=== PATIENT | female | born 1965 | race African-American/Black ===

== ENCOUNTER 2016-11-06 20:08 | Emergency (ER) | payer MEDICAID ==
[~2016-11-06] VITALS: Ht 172.7 cm; Wt 60.0 kg
[2016-11-06] MEDS ORDERED: SODIUM CHLORIDE 0.9% 1,000 ML IV ONE (20:29)
[2016-11-06] MEDS ORDERED: KETOROLAC 30MG/ML VIAL IV STA (20:29)
[2016-11-06] MEDS ORDERED: ONDANSETRON HCL 4MG/2ML VIAL IV STA ×2 (20:29→22:48)
[2016-11-06 21:47] LABS: INR 1.1; PROTHROMBIN TIME 11.3 sec (9.4-11.6)
[2016-11-06 21:50] LABS: BASOPHILS % 0.6 % (0.0-2.0); EOSINOPHILS % 0.4 % (0.0-5.0); HEMATOCRIT. 26.5 % (36.0-48.0); HEMOGLOBIN. 8.5 g/dL (12.0-16.0); LYMPHOCYTES % 20.5 % (20.0-50.0); MEAN CORPUSCULAR HEMOGLOBIN 27.2 pg (28.0-32.0); MEAN CORPUSCULAR VOLUME 84.8 fL (81.0-99.0); MONOCYTES % 9.7 % (2.0-8.0); NEUTROPHILS % 68.8 % (40.0-76.0); PLATELET 242 x1000/uL (130-400); RED BLOOD CELL COUNT 3.12 mill/uL (4.2-5.4); RED CELL DISTRIBUTION WIDTH 16.2 % (11.6-14.6)
[2016-11-06 21:55] LABS: CARBON DIOXIDE 32 mEq/L (21-32); CHLORIDE 94 mEq/L (98-107)
[2016-11-06] MEDS ORDERED: MORPHINE SULFATE 4 MG/ML CPJ (NOT FOR IM USE) IV STA (22:48)
[2016-11-06] MEDS ORDERED: HYDRALAZINE 20MG/ML VIAL IV ONE (23:00)
[2016-11-07 02:57] VITALS: BP 147/80
== END 2016-11-07 03:26 | disposition home or self-care (01) ==
LOC: ER 20:24
DX: R10.11 Right upper quadrant pain (principal); I12.0 Hypertensive chronic kidney disease with stage 5 chronic kidney disease or end stage renal disease; D63.1 Anemia in chronic kidney disease; E11.22 Type 2 diabetes mellitus with diabetic chronic kidney disease; N18.6 End stage renal disease; Z90.49 Acquired absence of other specified parts of digestive tract; Z99.2 Dependence on renal dialysis; Z87.19 Personal history of other diseases of the digestive system
CPT/HCPCS: 36415; 71010; 76705; 80053; 81025; 83690; 85025; 85610; 96361; 96374; 96375; 96376; 99285; J0360; J1885; J2270; J2405; J7030; Z7610

== ENCOUNTER 2016-11-13 22:24 | Inpatient (IN) | payer MEDICAID ==
[~2016-11-13] VITALS: Ht 167.6 cm; Wt 95.3 kg
[2016-11-13] MEDS ORDERED: ONDANSETRON HCL 4MG/2ML VIAL IV STA (23:15)
[2016-11-13] MEDS ORDERED: MORPHINE SULFATE 4 MG/ML CPJ (NOT FOR IM USE) IV STA (23:15)
[2016-11-13] MEDS ORDERED: FAMOTIDINE 20MG/2ML VIAL IV STA (23:15)
[2016-11-14 01:38] LABS: BASOPHILS % 1.8 % (0.0-2.0); EOSINOPHILS % 0.3 % (0.0-5.0); LYMPHOCYTES % 19.4 % (20.0-50.0); MEAN CORPUSCULAR HEMOGLOBIN 26.8 pg (28.0-32.0); MEAN CORPUSCULAR VOLUME 84.1 fL (81.0-99.0); MONOCYTES % 7.2 % (2.0-8.0); NEUTROPHILS % 71.3 % (40.0-76.0); PLATELET 203 x1000/uL (130-400); RED BLOOD CELL COUNT 2.97 mill/uL (4.2-5.4); RED CELL DISTRIBUTION WIDTH 16.4 % (11.6-14.6)
[2016-11-14 01:42] LABS: CHLORIDE 95 mEq/L (98-107)
[2016-11-14 01:51] LABS: CARBON DIOXIDE 33 mEq/L (21-32)
[2016-11-14 01:52] LABS: INR 1.2
[2016-11-14] MEDS ORDERED: LIDOCAINE HCL 1% 20ML VIAL (Pyxis) INJ ONE (08:28)
[2016-11-14] MEDS ORDERED: SODIUM BICARBONATE 4% (2.4MEQ) 5ML VIAL IV ONE (08:28)
[2016-11-14 09:45] VITALS: BP 194/91
[2016-11-14] MEDS: MORPHINE SULFATE 2 MG/ML CPJ (NOT FOR IM USE) IV PRN ×2 (11:06→21:04)
[2016-11-14 11:21] VITALS: BP 194/91
[2016-11-14 12:00] VITALS: BP 137/94
[2016-11-14] MEDS: SODIUM CHLORIDE 0.9% 1,000 ML IV SCH (12:06)
[2016-11-14] MEDS: ONDANSETRON HCL 4MG/2ML VIAL IV PRN ×2 (12:10→21:03)
[2016-11-14 16:00] VITALS: BP 134/85
[2016-11-14] MEDS ORDERED: DEXTROSE 50% WATER 50ML SYRINGE IV PRN (20:00)
[2016-11-14] MEDS ORDERED: POTASSIUM CHLORIDE 20MEQ TABLET SR PO NR (20:00)
[2016-11-14] MEDS ORDERED: ENOXAPARIN 40MG/0.4ML SYR SUBCUT SCH (21:00)
[2016-11-14] MEDS: CLONIDINE 0.1MG TABLET PO PRN (21:00)
[2016-11-14] MEDS: INSULIN LISPRO 100 UNITS/ML SUBCUT SCH (21:24)
[2016-11-14] MEDS: BLOOD SUGAR DIAGNOSTIC STRIP TEST SCH (21:25)
[2016-11-15] VITALS (13 sets, daily range): BP systolic 133–154; BP diastolic 74–88
[2016-11-15] MEDS: BLOOD SUGAR DIAGNOSTIC STRIP TEST SCH ×4 (06:24→20:46)
[2016-11-15] MEDS: ONDANSETRON HCL 4MG/2ML VIAL IV PRN ×2 (06:24→20:32)
[2016-11-15] MEDS: SODIUM CHLORIDE 0.9% 1,000 ML IV SCH ×2 (06:24→20:33)
[2016-11-15] MEDS: INSULIN LISPRO 100 UNITS/ML SUBCUT SCH ×4 (07:50→20:45)
[2016-11-15] MEDS ORDERED: FENTANYL CITRATE/PF 50MCG/ML 2ML VIAL ONE (09:12)
[2016-11-15] MEDS ORDERED: FENTANYL CITRATE/PF 50MCG/ML 2ML VIAL IV ONE (10:00)
[2016-11-15] MEDS: FAMOTIDINE 20MG/2ML VIAL IV SCH (11:35)
[2016-11-15] MEDS ORDERED: PIPERACILLIN/TAZ 3.375G PREMIX 50 ML IV SCH (12:00)
[2016-11-15] MEDS: HYDROMORPHONE HCL/PF 2MG/ML CPJ IV PRN ×3 (12:37→23:39)
[2016-11-15 13:27] LABS: BASOPHILS % 0.4 % (0.0-2.0); EOSINOPHILS % 0.5 % (0.0-5.0); HEMATOCRIT. 24.8 % (36.0-48.0); HEMOGLOBIN. 7.9 g/dL (12.0-16.0); LYMPHOCYTES % 12.7 % (20.0-50.0); MEAN CORPUSCULAR HEMOGLOBIN 27.1 pg (28.0-32.0); MEAN CORPUSCULAR VOLUME 85.1 fL (81.0-99.0); MEAN PLATELET VOLUME 8.9 fl (7.4-10.4); MONOCYTES % 6.1 % (2.0-8.0); NEUTROPHILS % 80.3 % (40.0-76.0); PLATELET 177 x1000/uL (130-400); RED BLOOD CELL COUNT 2.92 mill/uL (4.2-5.4); RED CELL DISTRIBUTION WIDTH 16.3 % (11.6-14.6)
[2016-11-15 13:33] LABS: INR 1.1; PROTHROMBIN TIME 11.8 sec (9.4-11.6)
[2016-11-15 13:55] LABS: CARBON DIOXIDE 33 mEq/L (21-32); CHLORIDE 97 mEq/L (98-107)
[2016-11-15] MEDS: PIPERACILLIN/TAZ 2.25G PREMIX 50 ML IV SCH ×2 (14:00→22:57)
[2016-11-15 16:30] LABS: TOTAL IRON BINDING CAPACITY 96 ug/dL (250-450)
[2016-11-15 16:52] LABS: FOLIC ACID (FOLATE) SERUM 3.6 ng/mL (>5.38)
[2016-11-15] MEDS: MORPHINE SULFATE 2 MG/ML CPJ (NOT FOR IM USE) IV PRN (17:14)
[2016-11-15] MEDS: FOLIC ACID 1MG TABLET PO SCH (20:33)
[2016-11-16] VITALS: BP 158/76
[2016-11-16 04:00] VITALS: BP 171/80
[2016-11-16] MEDS: PIPERACILLIN/TAZ 2.25G PREMIX 50 ML IV SCH ×3 (06:10→23:13)
[2016-11-16] MEDS: BLOOD SUGAR DIAGNOSTIC STRIP TEST SCH ×4 (06:21→20:28)
[2016-11-16] MEDS: HYDROMORPHONE HCL/PF 2MG/ML CPJ IV PRN ×4 (07:04→20:29)
[2016-11-16] MEDS: INSULIN LISPRO 100 UNITS/ML SUBCUT SCH ×4 (07:50→20:31)
[2016-11-16 08:00] VITALS: BP 132/70
[2016-11-16] MEDS: FOLIC ACID 1MG TABLET PO SCH (09:00)
[2016-11-16] MEDS: FAMOTIDINE 20MG/2ML VIAL IV SCH (09:00)
[2016-11-16] MEDS ORDERED: MORPHINE SULFATE 2 MG/ML CPJ (NOT FOR IM USE) IV PRN (10:15)
[2016-11-16 12:00] VITALS: BP 95/53
[2016-11-16] MEDS: SODIUM CHLORIDE 0.9% 1,000 ML IV SCH (14:28)
[2016-11-16 16:00] VITALS: BP 94/64
[2016-11-16] MEDS ORDERED: VANCOMYCIN 1500MG in DEXTROSE 5% WATER 250ML IV SCH (16:00)
[2016-11-16 20:00] VITALS: BP 123/64
[2016-11-16] MEDS: EPOETIN ALFA 10000UNITS/ML VIAL SUBCUT SCH (20:28)
[2016-11-17] VITALS: BP 147/70
[2016-11-17] MEDS: MORPHINE SULFATE 2 MG/ML CPJ (NOT FOR IM USE) IV PRN (00:15)
[2016-11-17 04:00] VITALS: BP 129/77
[2016-11-17] MEDS: HYDROMORPHONE HCL/PF 2MG/ML CPJ IV PRN ×4 (04:26→22:05)
[2016-11-17] MEDS: BLOOD SUGAR DIAGNOSTIC STRIP TEST SCH ×4 (06:22→21:54)
[2016-11-17] MEDS: SODIUM CHLORIDE 0.9% 1,000 ML IV SCH ×2 (06:22→21:58)
[2016-11-17] MEDS: PIPERACILLIN/TAZ 2.25G PREMIX 50 ML IV SCH ×3 (06:22→21:55)
[2016-11-17 06:26] LABS: BASOPHILS % 0.5 % (0.0-2.0); EOSINOPHILS % 2.4 % (0.0-5.0); LYMPHOCYTES % 21.3 % (20.0-50.0); MEAN CORPUSCULAR HEMOGLOBIN 27.1 pg (28.0-32.0); MEAN CORPUSCULAR VOLUME 84.9 fL (81.0-99.0); MEAN PLATELET VOLUME 9.3 fl (7.4-10.4); MONOCYTES % 9.1 % (2.0-8.0); NEUTROPHILS % 66.7 % (40.0-76.0); PLATELET 150 x1000/uL (130-400); RED BLOOD CELL COUNT 2.95 mill/uL (4.2-5.4); RED CELL DISTRIBUTION WIDTH 16.5 % (11.6-14.6)
[2016-11-17] MEDS: INSULIN LISPRO 100 UNITS/ML SUBCUT SCH ×4 (07:33→21:00)
[2016-11-17 08:00] VITALS: BP 146/75
[2016-11-17] MEDS: FAMOTIDINE 20MG/2ML VIAL IV SCH (08:18)
[2016-11-17] MEDS: FOLIC ACID 1MG TABLET PO SCH (08:18)
[2016-11-17 12:00] VITALS: BP 137/72
[2016-11-17 16:00] VITALS: BP 148/78
[2016-11-17 20:00] VITALS: BP 147/67
[2016-11-18] VITALS: BP 161/75
[2016-11-18] MEDS: HYDROMORPHONE HCL/PF 2MG/ML CPJ IV PRN ×5 (02:05→21:48)
[2016-11-18 04:00] VITALS: BP 185/97
[2016-11-18] MEDS: PIPERACILLIN/TAZ 2.25G PREMIX 50 ML IV SCH ×3 (06:10→21:59)
[2016-11-18] MEDS: BLOOD SUGAR DIAGNOSTIC STRIP TEST SCH ×4 (06:15→21:00)
[2016-11-18 06:26] LABS: BASOPHILS % 0.6 % (0.0-2.0); EOSINOPHILS % 2.2 % (0.0-5.0); HEMATOCRIT. 22.2 % (36.0-48.0); HEMOGLOBIN. 7.1 g/dL (12.0-16.0); LYMPHOCYTES % 17.5 % (20.0-50.0); MEAN CORPUSCULAR HEMOGLOBIN 26.9 pg (28.0-32.0); MEAN CORPUSCULAR VOLUME 84.3 fL (81.0-99.0); MEAN PLATELET VOLUME 9.4 fl (7.4-10.4); MONOCYTES % 8.4 % (2.0-8.0); NEUTROPHILS % 71.3 % (40.0-76.0); PLATELET 142 x1000/uL (130-400); RED BLOOD CELL COUNT 2.63 mill/uL (4.2-5.4); RED CELL DISTRIBUTION WIDTH 16.4 % (11.6-14.6)
[2016-11-18] MEDS: CLONIDINE 0.1MG TABLET PO PRN (06:33)
[2016-11-18] MEDS: INSULIN LISPRO 100 UNITS/ML SUBCUT SCH ×4 (07:50→21:00)
[2016-11-18 08:00] VITALS: BP 111/60
[2016-11-18] MEDS: FAMOTIDINE 20MG/2ML VIAL IV SCH (08:38)
[2016-11-18] MEDS: FOLIC ACID 1MG TABLET PO SCH (08:38)
[2016-11-18 12:00] VITALS: BP 113/80
[2016-11-18 16:00] VITALS: BP 120/66
[2016-11-18] MEDS ORDERED: LACTULOSE 20G/30ML UDC PO NR (16:00)
[2016-11-18] MEDS: SENNOSIDES/DOCUSATE SOD 8.6/50MG TABLET PO SCH (16:00)
[2016-11-18] MEDS ORDERED: VANCOMYCIN 750 MG PREMIX 150 ML IV SCH (17:00)
[2016-11-18] MEDS: LINEZOLID 600 MG PREMIX 300 ML IV SCH (17:31)
[2016-11-18 20:00] VITALS: BP 131/86
[2016-11-18] MEDS: EPOETIN ALFA 10000UNITS/ML VIAL SUBCUT SCH (21:00)
[2016-11-19 04:00] VITALS: BP 153/71
[2016-11-19] MEDS: LINEZOLID 600 MG PREMIX 300 ML IV SCH ×2 (05:13→17:38)
[2016-11-19] MEDS: PIPERACILLIN/TAZ 2.25G PREMIX 50 ML IV SCH ×3 (05:46→21:08)
[2016-11-19] MEDS: HYDROMORPHONE HCL/PF 2MG/ML CPJ IV PRN ×5 (05:52→23:28)
[2016-11-19] MEDS: BLOOD SUGAR DIAGNOSTIC STRIP TEST SCH ×4 (06:42→20:21)
[2016-11-19] MEDS: INSULIN LISPRO 100 UNITS/ML SUBCUT SCH ×4 (07:50→20:29)
[2016-11-19 08:00] VITALS: BP 159/71
[2016-11-19] MEDS: SENNOSIDES/DOCUSATE SOD 8.6/50MG TABLET PO SCH (08:46)
[2016-11-19] MEDS: FAMOTIDINE 20MG/2ML VIAL IV SCH (08:46)
[2016-11-19] MEDS: FOLIC ACID 1MG TABLET PO SCH (08:46)
[2016-11-19 12:00] VITALS: BP 133/70
[2016-11-19] MEDS: ONDANSETRON HCL 4MG/2ML VIAL IV PRN (14:59)
[2016-11-19 15:13] LABS: BASOPHILS % 0.8 % (0.0-2.0); EOSINOPHILS % 3.4 % (0.0-5.0); HEMATOCRIT. 23.4 % (36.0-48.0); HEMOGLOBIN. 7.4 g/dL (12.0-16.0); LYMPHOCYTES % 24.6 % (20.0-50.0); MEAN CORPUSCULAR HEMOGLOBIN 26.6 pg (28.0-32.0); MEAN CORPUSCULAR VOLUME 84.6 fL (81.0-99.0); MEAN PLATELET VOLUME 9.1 fl (7.4-10.4); MONOCYTES % 7.4 % (2.0-8.0); NEUTROPHILS % 63.8 % (40.0-76.0); PLATELET 182 x1000/uL (130-400); RED BLOOD CELL COUNT 2.76 mill/uL (4.2-5.4); RED CELL DISTRIBUTION WIDTH 16.4 % (11.6-14.6)
[2016-11-19 16:00] VITALS: BP 139/69
[2016-11-19 20:00] VITALS: BP 144/81
[2016-11-20] VITALS: BP 163/76
[2016-11-20 04:00] VITALS: BP 141/85
[2016-11-20] MEDS: LINEZOLID 600 MG PREMIX 300 ML IV SCH ×2 (04:11→17:43)
[2016-11-20] MEDS: ONDANSETRON HCL 4MG/2ML VIAL IV PRN ×2 (04:11→16:00)
[2016-11-20] MEDS: HYDROMORPHONE HCL/PF 2MG/ML CPJ IV PRN ×2 (04:12→08:28)
[2016-11-20] MEDS: PIPERACILLIN/TAZ 2.25G PREMIX 50 ML IV SCH ×2 (05:16→14:34)
[2016-11-20] MEDS: BLOOD SUGAR DIAGNOSTIC STRIP TEST SCH ×3 (07:10→17:45)
[2016-11-20 08:00] VITALS: BP 176/102
[2016-11-20] MEDS: FOLIC ACID 1MG TABLET PO SCH (08:27)
[2016-11-20] MEDS: FAMOTIDINE 20MG/2ML VIAL IV SCH (08:28)
[2016-11-20] MEDS: INSULIN LISPRO 100 UNITS/ML SUBCUT SCH ×3 (08:42→17:45)
[2016-11-20] MEDS: SENNOSIDES/DOCUSATE SOD 8.6/50MG TABLET PO SCH (08:44)
[2016-11-20 10:31] LABS: BASOPHILS % 0.7 % (0.0-2.0); EOSINOPHILS % 3.6 % (0.0-5.0); HEMATOCRIT. 25.6 % (36.0-48.0); MEAN CORPUSCULAR HEMOGLOBIN 26.3 pg (28.0-32.0); MEAN CORPUSCULAR VOLUME 84.5 fL (81.0-99.0); MONOCYTES % 6.5 % (2.0-8.0); NEUTROPHILS % 62.2 % (40.0-76.0); PLATELET 227 x1000/uL (130-400); RED BLOOD CELL COUNT 3.03 mill/uL (4.2-5.4)
[2016-11-20 12:00] VITALS: BP 136/75
[2016-11-20 16:00] VITALS: BP 167/100
[2016-11-20] MEDS ORDERED: HYDROCODONE/ACETAMINOPHEN 10/325MG TABLET PO PRN (18:45)
== END 2016-11-20 20:39 | disposition home or self-care (01) | DRG 720 ==
LOC: ER 22:38 → 6EST 11-14 04:55 → EDBEDREQ 11-14 05:10 → EDBEDREQSVC 11-14 05:10 → ENRESERV 11-14 05:34
PROVIDERS: ADMIT Internal Medicine; ATTEND Internal Medicine
PROC: 02H633Z Insertion of Infusion Device into Right Atrium, Percutaneous Approach (ICD-10-PCS; 2016-11-14)
PROC: B548ZZA Ultrasonography of Superior Vena Cava, Guidance (ICD-10-PCS; 2016-11-14)
PROC: B5181ZA Fluoroscopy of Superior Vena Cava using Low Osmolar Contrast, Guidance (ICD-10-PCS; 2016-11-14)
PROC: CF141ZZ Planar Nuclear Medicine Imaging of Gallbladder using Technetium 99m (Tc-99m) (ICD-10-PCS; principal; 2016-11-15)
PROC: 0F943ZX Drainage of Gallbladder, Percutaneous Approach, Diagnostic (ICD-10-PCS; 2016-11-15)
DX: A41.9 Sepsis, unspecified organism (principal); E43 Unspecified severe protein-calorie malnutrition; N18.6 End stage renal disease; K81.0 Acute cholecystitis; I13.11 Hypertensive heart and chronic kidney disease without heart failure, with stage 5 chronic kidney disease, or end stage renal disease; I31.3 Pericardial effusion (noninflammatory); E11.22 Type 2 diabetes mellitus with diabetic chronic kidney disease; N28.1 Cyst of kidney, acquired; D64.9 Anemia, unspecified; E11.65 Type 2 diabetes mellitus with hyperglycemia; I51.7 Cardiomegaly; K57.30 Diverticulosis of large intestine without perforation or abscess without bleeding; K86.89 Other specified diseases of pancreas; D17.79 Benign lipomatous neoplasm of other sites; K59.00 Constipation, unspecified; E66.9 Obesity, unspecified; E88.09 Other disorders of plasma-protein metabolism, not elsewhere classified; Z99.2 Dependence on renal dialysis; Z68.33 Body mass index [BMI] 33.0-33.9, adult; Z90.49 Acquired absence of other specified parts of digestive tract
CPT/HCPCS: 36415; 36569; 74176; 76937; 77001; 77012; 78227; 80048; 80053; 82607; 82728; 82746; 82962; 83540; 83550; 83605; 83690; 85025; 85610; 85730; 87070; 87075; 87186; 87205; 96374; 96375; 99285; A9537; C1725; C1729; J0885; J1170; J1815; J2020; J2270; J2405; J2543; J3010; J3370; J3490; J7030; J7050; J7060; L8514

== ENCOUNTER 2016-12-07 20:14 | Inpatient (IN) | payer MEDICAID ==
[~2016-12-07] VITALS: Ht 170.2 cm; Wt 83.9 kg
[2016-12-08] MEDS ORDERED: ONDANSETRON 4MG ODT PO ONE (00:15)
[2016-12-08] MEDS ORDERED: ONDANSETRON HCL 4MG/2ML VIAL IV ONE (01:00)
[2016-12-08] MEDS ORDERED: MORPHINE SULFATE 4 MG/ML CPJ (NOT FOR IM USE) IV ONE (01:00)
[2016-12-08] MEDS ORDERED: SODIUM CHLORIDE 0.9% 500 ML IV ONE (01:00)
[2016-12-08 01:08] LABS: BASOPHILS % 2.5 % (0.0-2.0); EOSINOPHILS % 1.5 % (0.0-5.0); HEMATOCRIT. 27.9 % (36.0-48.0); HEMOGLOBIN. 8.9 g/dL (12.0-16.0); LYMPHOCYTES % 28.1 % (20.0-50.0); MEAN CORPUSCULAR HEMOGLOBIN 25.8 pg (28.0-32.0); MEAN CORPUSCULAR VOLUME 80.4 fL (81.0-99.0); MEAN PLATELET VOLUME 8.4 fl (7.4-10.4); MONOCYTES % 6.4 % (2.0-8.0); NEUTROPHILS % 61.5 % (40.0-76.0); PLATELET 167 x1000/uL (130-400); RED BLOOD CELL COUNT 3.47 mill/uL (4.2-5.4); RED CELL DISTRIBUTION WIDTH 16.9 % (11.6-14.6)
[2016-12-08 01:09] LABS: INR 1.1; PROTHROMBIN TIME 11.7 sec (9.4-11.6)
[2016-12-08 01:16] LABS: CARBON DIOXIDE 36 mEq/L (21-32); CHLORIDE 92 mEq/L (98-107); TROPONIN I 0.04 ng/mL (0.00-0.04)
[2016-12-08 06:21] VITALS: BP 171/94
[2016-12-08 06:30] VITALS: BP 171/94
[2016-12-08] MEDS: ONDANSETRON HCL 4MG/2ML VIAL IV PRN ×2 (06:43→14:34)
[2016-12-08 08:00] VITALS: BP 174/94
[2016-12-08] MEDS ORDERED: POTASSIUM CHLORIDE 20MEQ TABLET SR PO SCH (10:30)
[2016-12-08] MEDS ORDERED: DEXTROSE 50% WATER 50ML SYRINGE IV PRN (10:30)
[2016-12-08] MEDS: PANTOPRAZOLE SODIUM 40 MG/VIAL IV SCH (10:37)
[2016-12-08] MEDS: MORPHINE SULFATE 4 MG/ML CPJ (NOT FOR IM USE) IV PRN ×2 (11:18→21:46)
[2016-12-08 12:00] VITALS: BP 146/85
[2016-12-08] MEDS: INSULIN LISPRO 100 UNITS/ML SUBCUT SCH ×3 (12:23→21:54)
[2016-12-08] MEDS: BLOOD SUGAR DIAGNOSTIC STRIP TEST SCH ×3 (12:23→21:36)
[2016-12-08 15:45] LABS: BASOPHILS % 1.4 % (0.0-2.0); EOSINOPHILS % 3.2 % (0.0-5.0); HEMATOCRIT. 21.5 % (36.0-48.0); LYMPHOCYTES % 31.4 % (20.0-50.0); MEAN CORPUSCULAR HEMOGLOBIN 26.4 pg (28.0-32.0); MEAN CORPUSCULAR VOLUME 81.1 fL (81.0-99.0); MEAN PLATELET VOLUME 8.2 fl (7.4-10.4); MONOCYTES % 6.2 % (2.0-8.0); NEUTROPHILS % 57.8 % (40.0-76.0); PLATELET 134 x1000/uL (130-400); RED BLOOD CELL COUNT 2.65 mill/uL (4.2-5.4); RED CELL DISTRIBUTION WIDTH 17.3 % (11.6-14.6)
[2016-12-08 15:53] LABS: CARBON DIOXIDE 36 mEq/L (21-32); CHLORIDE 98 mEq/L (98-107)
[2016-12-08 16:00] VITALS: BP 134/81
[2016-12-08 16:39] LABS: CARCINO EMBRYONIC ANTIGEN 2.3 ng/ml
[2016-12-08 16:51] LABS: FOLIC ACID (FOLATE) SERUM 10.1 ng/mL (>5.38)
[2016-12-08 20:00] VITALS: BP 129/78
[2016-12-08] MEDS ORDERED: LINE600T6 PO (20:22)
[2016-12-08] MEDS ORDERED: LISI10TA5 PO (20:22)
[2016-12-08] MEDS ORDERED: NEPVIT PO (20:22)
[2016-12-08] MEDS ORDERED: ERGO2000 PO (20:22)
[2016-12-08] MEDS ORDERED: ERGO500013 PO (20:22)
[2016-12-08] MEDS ORDERED: ONDA4TAB5 PO (20:22)
[2016-12-08] MEDS ORDERED: AMYL1CAP57 PO (20:22)
[2016-12-09] VITALS: BP 113/70
[2016-12-09 04:00] VITALS: BP 147/83
[2016-12-09] MEDS: BLOOD SUGAR DIAGNOSTIC STRIP TEST SCH ×3 (06:23→17:02)
[2016-12-09] MEDS: INSULIN LISPRO 100 UNITS/ML SUBCUT SCH ×3 (07:01→17:29)
[2016-12-09 08:00] VITALS: BP 103/69
[2016-12-09] MEDS: PANTOPRAZOLE SODIUM 40 MG/VIAL IV SCH (09:12)
[2016-12-09 12:00] VITALS: BP 137/78
[2016-12-09 16:00] VITALS: BP 148/88
[2016-12-09] MEDS: ONDANSETRON HCL 4MG/2ML VIAL IV PRN (16:59)
[2016-12-09] MEDS ORDERED: EPOETIN ALFA 4000UNITS/ML VIAL SUBCUT SCH (21:00)
[2016-12-10] MEDS ORDERED: FAMOTIDINE 20MG/2ML VIAL IV SCH (09:00)
== END 2016-12-09 17:20 | disposition left against medical advice (07) | DRG 247 ==
LOC: ER 20:14 → ENRESERV 12-08 03:04 → 6EST 12-08 06:08
PROVIDERS: ADMIT Internal Medicine; ATTEND Internal Medicine
DX: K56.60 Unspecified intestinal obstruction (principal); E43 Unspecified severe protein-calorie malnutrition; I12.0 Hypertensive chronic kidney disease with stage 5 chronic kidney disease or end stage renal disease; N18.6 End stage renal disease; E11.22 Type 2 diabetes mellitus with diabetic chronic kidney disease; D63.8 Anemia in other chronic diseases classified elsewhere; E87.6 Hypokalemia; Z53.21 Procedure and treatment not carried out due to patient leaving prior to being seen by health care provider; Z90.49 Acquired absence of other specified parts of digestive tract; Z99.2 Dependence on renal dialysis; Z68.29 Body mass index [BMI] 29.0-29.9, adult
CPT/HCPCS: 36415; 74022; 74176; 80053; 82378; 82607; 82728; 82746; 82962; 83540; 83550; 83615; 83690; 84443; 84484; 85025; 85044; 85610; 85651; 85730; 86140; 99285; C9113; J0885; J1815; J2270; J2405; J7030; J7040; Q0162

== ENCOUNTER 2017-01-02 21:10 | Inpatient (IN) | payer MEDICAID ==
[~2017-01-02] VITALS: Ht 167.6 cm; Wt 86.2 kg
[~2017-01-02 21:10] MED LIST: AMYL1CAP57 PO; ERGO2000 PO; ERGO500013 PO; LINE600T6 PO; LISI10TA5 PO; NEPVIT PO; ONDA4TAB5 PO
[2017-01-02] MEDS ORDERED: MORPHINE SULFATE 4 MG/ML CPJ (NOT FOR IM USE) IV STA (22:25)
[2017-01-02] MEDS ORDERED: ONDANSETRON HCL 4MG/2ML VIAL IV STA (22:25)
[2017-01-02 22:38] LABS: EOSINOPHILS % 0.3 % (0.0-5.0); LYMPHOCYTES % 30.3 % (20.0-50.0); MEAN CORPUSCULAR HEMOGLOBIN 25.9 pg (28.0-32.0); MEAN CORPUSCULAR VOLUME 81.4 fL (81.0-99.0); NEUTROPHILS % 56.4 % (40.0-76.0); PLATELET 242 x1000/uL (130-400); RED BLOOD CELL COUNT 2.46 mill/uL (4.2-5.4); RED CELL DISTRIBUTION WIDTH 18.4 % (11.6-14.6)
[2017-01-02 22:41] LABS: HEMOGLOBIN. 6.4 g/dL (12.0-16.0)
[2017-01-02 22:45] LABS: HCG SCREEN NEGATIVE
[2017-01-02 22:48] LABS: INR 1.2; PARTIAL THROMBOPLASTIN TIME 21.6 sec (23.4-31.0); PROTHROMBIN TIME 12.7 sec (9.4-11.6)
[2017-01-02] MEDS ORDERED: MORPHINE SULFATE 2 MG/ML CPJ (NOT FOR IM USE) IV SCH (22:53)
[2017-01-02 22:55] LABS: CARBON DIOXIDE 37 mEq/L (21-32); CHLORIDE 91 mEq/L (98-107); PHOSPHORUS 2.3 mg/dL (2.5-4.9); TROPONIN I 0.03 ng/mL (0.00-0.04)
[2017-01-02 23:20] LABS: TOTAL IRON BINDING CAPACITY 119 ug/dL (250-450)
[2017-01-03] MEDS ORDERED: POTASSIUM CHLORIDE 20MEQ TABLET SR PO ONE
[2017-01-03] MEDS ORDERED: KCL 10MEQ/50ML PREMIX 50 ML IV ONE
[2017-01-03 01:45] VITALS: BP 127/78
[2017-01-03 04:00] VITALS: BP 117/73
[2017-01-03 08:00] VITALS: BP 103/64
[2017-01-03] MEDS ORDERED: MORPHINE SULFATE 1MG/ML 1ML INJ SYR(NEO) IV PRN (08:00)
[2017-01-03] MEDS: ONDANSETRON HCL 4MG/2ML VIAL IV PRN ×3 (08:34→17:46)
[2017-01-03] MEDS: MORPHINE SULFATE 2 MG/ML CPJ (NOT FOR IM USE) IV PRN ×2 (08:35→15:10)
[2017-01-03] MEDS ORDERED: FERR325T6 PO (12:02)
[2017-01-03] MEDS ORDERED: LABE100T PO (12:21)
[2017-01-03] MEDS ORDERED: LISI40TA4 PO (12:21)
[2017-01-03] MEDS ORDERED: AMLO10TA80 PO (12:21)
[2017-01-03] MEDS ORDERED: HYDR4TAB56 PO (12:21)
[2017-01-03] MEDS ORDERED: ONDA4TAB5 PO (12:22)
[2017-01-03 16:00] VITALS: BP 103/62
[2017-01-03 20:00] VITALS: BP 104/44
[2017-01-03 20:30] VITALS: BP 99/65
[2017-01-03] MEDS ORDERED: HETASTARCH/NORMAL SALINE 500 ML PLAST..BAG IV ONE (20:30)
[2017-01-03] MEDS: LABETALOL HCL 200MG TABLET PO SCH (21:00)
[2017-01-03] MEDS ORDERED: HETASTARCH/NORMAL SALINE 250 ML IV NR (21:00)
[2017-01-03] MEDS: EPOETIN ALFA 10000UNITS/ML VIAL SUBCUT SCH (21:34)
[2017-01-04] VITALS: BP 113/66
[2017-01-04 04:00] VITALS: BP_SYST 124; BP_SYST 125; BP_DIAS 62; BP_DIAS 75
[2017-01-04 08:26] VITALS: BP 103/61
[2017-01-04] MEDS: AMLODIPINE 10MG TABLET PO SCH (09:00)
[2017-01-04] MEDS: LISINOPRIL 40MG TABLET PO SCH (09:00)
[2017-01-04] MEDS: LABETALOL HCL 200MG TABLET PO SCH ×2 (09:00→21:00)
[2017-01-04] MEDS ORDERED: DEXTROSE 50% WATER 50ML SYRINGE IV PRN (09:30)
[2017-01-04] MEDS: BLOOD SUGAR DIAGNOSTIC STRIP TEST SCH ×3 (11:24→21:00)
[2017-01-04] MEDS: INSULIN LISPRO 100 UNITS/ML SUBCUT SCH ×3 (11:43→22:33)
[2017-01-04 12:00] VITALS: BP 97/51
[2017-01-04 16:01] VITALS: BP 100/45
[2017-01-04 20:00] VITALS: BP 106/60
[2017-01-04 21:17] LABS: MEAN CORPUSCULAR HEMOGLOBIN 27.5 pg (28.0-32.0); MEAN CORPUSCULAR VOLUME 85.2 fL (81.0-99.0); MEAN PLATELET VOLUME 9.3 fl (7.4-10.4); PLATELET 154 x1000/uL (130-400); RED CELL DISTRIBUTION WIDTH 21.6 % (11.6-14.6)
[2017-01-04 21:23] LABS: PARTIAL THROMBOPLASTIN TIME 22.8 sec (23.4-31.0)
[2017-01-04 21:31] LABS: HEMOGLOBIN. 5.8 g/dL (12.0-16.0)
[2017-01-04 21:32] LABS: HEMATOCRIT. 17.9 % (36.0-48.0)
[2017-01-04 21:49] LABS: T4 FREE 0.92 ng/dL (0.76-1.46)
[2017-01-04 21:53] LABS: PLATELET ESTIMATE NORMAL
[2017-01-04 21:58] LABS: FOLIC ACID (FOLATE) SERUM 5.2 ng/mL (>5.38)
[2017-01-04 22:09] LABS: CARCINO EMBRYONIC ANTIGEN 3.6 ng/ml
[2017-01-04] MEDS ORDERED: HETASTARCH/NORMAL SALINE 500 ML PLAST..BAG IV SCH (22:15)
[2017-01-04] MEDS ORDERED: HETASTARCH/NORMAL SALINE 500 ML IV NR (23:30)
[2017-01-05] VITALS: BP 119/61
[2017-01-05] MEDS: BLOOD SUGAR DIAGNOSTIC STRIP TEST SCH ×4 (05:57→21:09)
[2017-01-05] MEDS: INSULIN LISPRO 100 UNITS/ML SUBCUT SCH ×4 (05:58→21:00)
[2017-01-05] MEDS: AMLODIPINE 10MG TABLET PO SCH (09:00)
[2017-01-05] MEDS: LABETALOL HCL 200MG TABLET PO SCH ×2 (09:00→20:37)
[2017-01-05] MEDS: LISINOPRIL 40MG TABLET PO SCH (09:00)
[2017-01-05 15:38] VITALS: BP 128/65
[2017-01-05] MEDS ORDERED: HETASTARCH/NORMAL SALINE 500 ML IV SCH (16:00)
[2017-01-05] MEDS: ONDANSETRON HCL 4MG/2ML VIAL IV PRN ×2 (16:46→21:16)
[2017-01-05] MEDS: MORPHINE SULFATE 2 MG/ML CPJ (NOT FOR IM USE) IV PRN (16:47)
[2017-01-05] MEDS: EPOETIN ALFA 10000UNITS/ML VIAL SUBCUT SCH (21:16)
[2017-01-05] MEDS: MORPHINE SULFATE 10 MG/ML CPJ IV PRN (21:17)
[2017-01-06] MEDS: BLOOD SUGAR DIAGNOSTIC STRIP TEST SCH ×3 (07:10→17:10)
[2017-01-06] MEDS: INSULIN LISPRO 100 UNITS/ML SUBCUT SCH ×3 (07:40→17:25)
[2017-01-06 08:00] VITALS: BP 144/85
[2017-01-06] MEDS: LISINOPRIL 40MG TABLET PO SCH (09:00)
[2017-01-06] MEDS: LABETALOL HCL 200MG TABLET PO SCH (09:00)
[2017-01-06] MEDS: AMLODIPINE 10MG TABLET PO SCH (09:00)
[2017-01-06] MEDS: ONDANSETRON HCL 4MG/2ML VIAL IV PRN ×2 (09:04→14:05)
[2017-01-06] MEDS: MORPHINE SULFATE 10 MG/ML CPJ IV PRN (09:05)
[2017-01-06 12:00] VITALS: BP 118/76
[2017-01-06 13:52] VITALS: BP 118/76
[2017-01-06] MEDS ORDERED: HEPARIN SODIUM 1,000 UNIT/1ML VIAL IV NR (15:53)
[2017-01-06 16:00] VITALS: BP 112/68
[2017-01-06 17:00] VITALS: BP 112/68
== END 2017-01-06 19:05 | disposition home or self-care (01) | DRG 470 ==
LOC: ER 21:27 → EDBEDREQTM 23:00 → EDBEDREQ 23:00 → 8WST 23:56 → ENRESERV 01-03 00:13
PROVIDERS: ADMIT Internal Medicine; ATTEND Internal Medicine
PROC: 5A1D70Z Performance of Urinary Filtration, Intermittent, Less than 6 Hours Per Day (ICD-10-PCS; principal; 2017-01-04)
PROC: 02HV33Z Insertion of Infusion Device into Superior Vena Cava, Percutaneous Approach (ICD-10-PCS; 2017-01-05)
PROC: B548ZZA Ultrasonography of Superior Vena Cava, Guidance (ICD-10-PCS; 2017-01-05)
DX: I12.0 Hypertensive chronic kidney disease with stage 5 chronic kidney disease or end stage renal disease (principal); E43 Unspecified severe protein-calorie malnutrition; N18.6 End stage renal disease; E87.2 Acidosis; E87.6 Hypokalemia; E11.22 Type 2 diabetes mellitus with diabetic chronic kidney disease; R74.0 Nonspecific elevation of levels of transaminase and lactic acid dehydrogenase [LDH]; D63.8 Anemia in other chronic diseases classified elsewhere; Z91.19 Patient's noncompliance with other medical treatment and regimen; Z99.2 Dependence on renal dialysis; Z90.49 Acquired absence of other specified parts of digestive tract; Z68.30 Body mass index [BMI] 30.0-30.9, adult; Z79.899 Other long term (current) drug therapy
CPT/HCPCS: 36415; 36430; 36569; 70450; 71010; 76937; 80048; 80053; 82378; 82607; 82728; 82746; 82962; 83540; 83550; 83605; 83615; 83735; 84100; 84439; 84443; 84484; 84703; 85025; 85044; 85384; 85610; 85651; 85730; 87040; 93005; 96374; 96375; 99291; C1725; C1893; J0885; J1644; J1815; J2270; J2405; J3480; J7030; J7050

== ENCOUNTER 2019-07-31 22:18 | Inpatient (IN) | payer MEDICARE, MEDICAID ==
[~2019-07-31] VITALS: Ht 167.6 cm; Wt 65.8 kg
[~2019-07-31 22:18] MED LIST changes: +AMLO10TA80 PO; -AMYL1CAP57 PO; +CLON0.2T PO; -ERGO2000 PO; -ERGO500013 PO; +FERR325T6 PO; +GABA-529 PO; +LABE100T5 PO; +LANTUSUD SUBCUT; +LEVO250T2 MT; -LINE600T6 PO; -LISI10TA5 PO; +METR70GE2 VG; -NEPVIT PO
[2019-07-31] MEDS ORDERED: ONDANSETRON HCL 4MG/2ML INJ IV STA (23:22)
[2019-07-31] MEDS ORDERED: MORPHINE SULFATE 4 MG/ML CPJ (NOT FOR IM USE) IV STA (23:22)
[2019-08-01 00:30] LABS: BASOPHILS % 0.9 % (0.0-2.0); HEMATOCRIT. 40.7 % (36.0-48.0); HEMOGLOBIN. 12.9 g/dL (12.0-16.0); LYMPHOCYTES % 23.4 % (20.0-50.0); MEAN CORPUSCULAR HEMOGLOBIN 27.5 pg (28.0-32.0); MEAN CORPUSCULAR VOLUME 86.6 fL (81.0-99.0); MEAN PLATELET VOLUME 9.6 fl (7.4-10.4); MONOCYTES % 5.9 % (2.0-8.0); NEUTROPHILS % 68.8 % (40.0-76.0); PLATELET 81 x1000/uL (130-400); RED CELL DISTRIBUTION WIDTH 19.2 % (11.6-14.6)
[2019-08-01 00:38] LABS: PARTIAL THROMBOPLASTIN TIME 27.1 sec (23.4-31.0); PROTHROMBIN TIME 10.6 sec (9.6-11.0)
[2019-08-01 00:42] LABS: CHLORIDE 96 mEq/L (98-107)
[2019-08-01] MEDS ORDERED: SODIUM CHLORIDE 0.9% 1,000 ML IV ONE (01:00)
[2019-08-01] MEDS ORDERED: POTASSIUM CHLORIDE INJ 40 MEQ in DEXT 5% WATER 250 ML IV ONE (01:38)
[2019-08-01] MEDS ORDERED: DIPHENHYDRAMINE 50MG/ML VIAL IV PRN (08:30)
[2019-08-01] MEDS ORDERED: GUAIFENESIN 200MG/10ML SUGAR FREE UDC PO PRN (08:30)
[2019-08-01] MEDS ORDERED: MAGNESIUM/ALUMINUM HYDROXIDE/SIMETHICONE 30ML UDC PO PRN (08:30)
[2019-08-01] MEDS ORDERED: ENOXAPARIN 40MG/0.4ML SYR SUBCUT SCH (08:30)
[2019-08-01] MEDS ORDERED: LORAZEPAM 2MG/ML CPJ IV PRN (08:30)
[2019-08-01] MEDS ORDERED: NA PHOS,M-B/NA PHOS,DI-BA ENEMA 118ML PR PRN (08:30)
[2019-08-01] MEDS ORDERED: MORPHINE SULFATE 2 MG/ML CPJ (NOT FOR IM USE) IV PRN (08:30)
[2019-08-01] MEDS ORDERED: DEXTROSE 50% WATER 50ML SYRINGE IV PRN (08:30)
[2019-08-01] MEDS ORDERED: ACETAMINOPHEN 325MG TABLET PO PRN (08:30)
[2019-08-01] MEDS ORDERED: ONDANSETRON HCL 4MG/2ML INJ IV PRN (08:30)
[2019-08-01] MEDS ORDERED: DOCUSATE SODIUM 100MG CAPSULE PO PRN (08:30)
[2019-08-01] MEDS ORDERED: IPRATROPIUM/ALBUTEROL 0.5-3(2.5)MG/3ML NEB NEB PRN (08:30)
[2019-08-01] MEDS ORDERED: INSULIN REGULAR (HUMULIN R) 300UNITS/3ML SUBCUT SCH (08:50)
[2019-08-01 11:00] VITALS: BP 178/76
[2019-08-01] MEDS: LOSARTAN POTASSIUM 50 MG TABLET PO SCH (11:00)
[2019-08-01 11:04] VITALS: BP 178/76
[2019-08-01] MEDS ORDERED: BLOOD SUGAR DIAGNOSTIC STRIP TEST SCH (11:50)
[2019-08-01] MEDS: ENOXAPARIN 30MG/0.3ML SYR SUBCUT SCH (13:00)
[2019-08-01 13:01] VITALS: BP 166/82
[2019-08-01] MEDS ORDERED: INSULIN REGULAR (HUMULIN R) UD 100 UNITS/ML SYR IV SCH (14:00)
[2019-08-01] MEDS: SODIUM CHLORIDE 0.9% INJ 3ML FLUSH IVF SCH ×2 (15:11→21:30)
[2019-08-01] MEDS: CEFTRIAXONE 1 G PREMIX 50 ML IV SCH (15:25)
[2019-08-01] MEDS: BLOOD SUGAR DIAGNOSTIC STRIP TEST SCH ×2 (17:16→21:00)
[2019-08-01] MEDS: INSULIN LISPRO 100 UNITS/ML SUBCUT SCH ×2 (17:20→21:31)
[2019-08-01] MEDS: HYDROCODONE/ACETAMINOPHEN 10/325MG TABLET PO PRN (20:11)
[2019-08-01 20:58] VITALS: BP 167/112
[2019-08-01 21:23] LABS: CREATINE KINASE MB FRACTION 3.3 ng/mL (0.5-3.6)
[2019-08-01 21:32] LABS: BASOPHILS % 0.6 % (0.0-2.0); EOSINOPHILS % 1.3 % (0.0-5.0); HEMATOCRIT. 40.6 % (36.0-48.0); HEMOGLOBIN. 13.2 g/dL (12.0-16.0); LYMPHOCYTES % 22.9 % (20.0-50.0); MEAN CORPUSCULAR HEMOGLOBIN 27.5 pg (28.0-32.0); MEAN CORPUSCULAR VOLUME 84.6 fL (81.0-99.0); MEAN PLATELET VOLUME 9.5 fl (7.4-10.4); MONOCYTES % 6.7 % (2.0-8.0); NEUTROPHILS % 68.5 % (40.0-76.0); PLATELET 101 x1000/uL (130-400); RED CELL DISTRIBUTION WIDTH 18.8 % (11.6-14.6)
[2019-08-01] MEDS: CLONIDINE 0.1MG TABLET PO PRN (21:34)
[2019-08-01] MEDS: INSULIN GLARGINE UD 100 UNITS/ML SYR SUBCUT SCH (21:35)
[2019-08-01 22:24] VITALS: BP 152/100
[2019-08-01 22:57] VITALS: BP 136/96
[2019-08-01 23:05] LABS: CREATINE KINASE MB FRACTION 2.7 ng/mL (0.5-3.6)
[2019-08-02] VITALS (11 sets, daily range): BP systolic 100–154; BP diastolic 56–119
[2019-08-02] MEDS ORDERED: POTASSIUM CHLORIDE INJ 40 MEQ in DEXT 5% WATER 250 ML IV ONE (01:00)
[2019-08-02] MEDS: HYDROCODONE/ACETAMINOPHEN 10/325MG TABLET PO PRN ×2 (01:09→21:41)
[2019-08-02] MEDS: BLOOD SUGAR DIAGNOSTIC STRIP TEST SCH ×4 (06:35→21:05)
[2019-08-02] MEDS: DEXTROSE 50% WATER 50ML SYRINGE IV PRN ×2 (06:35→11:26)
[2019-08-02] MEDS: SODIUM CHLORIDE 0.9% INJ 3ML FLUSH IVF SCH ×3 (06:35→22:00)
[2019-08-02] MEDS: INSULIN LISPRO 100 UNITS/ML SUBCUT SCH ×4 (06:43→21:00)
[2019-08-02 07:08] LABS: BASOPHILS % 0.8 % (0.0-2.0); EOSINOPHILS % 1.8 % (0.0-5.0); HEMATOCRIT. 37.2 % (36.0-48.0); LYMPHOCYTES % 31.5 % (20.0-50.0); MEAN CORPUSCULAR HEMOGLOBIN 27.5 pg (28.0-32.0); MEAN PLATELET VOLUME 9.4 fl (7.4-10.4); MONOCYTES % 6.8 % (2.0-8.0); NEUTROPHILS % 59.1 % (40.0-76.0); PLATELET 83 x1000/uL (130-400); RED BLOOD CELL COUNT 4.38 mill/uL (4.2-5.4)
[2019-08-02 07:16] LABS: CHLORIDE 103 mEq/L (98-107)
[2019-08-02 07:25] LABS: LDL CHOLESTEROL 25 mg/dL (5-100)
[2019-08-02 07:26] LABS: HDL CHOLESTEROL 64 mg/dL (40-59); T4 FREE 0.95 ng/dL (0.76-1.46)
[2019-08-02] MEDS: LOSARTAN POTASSIUM 50 MG TABLET PO SCH (08:54)
[2019-08-02] MEDS: ASPIRIN 81MG TABLET PO SCH (08:54)
[2019-08-02] MEDS ORDERED: LEVE1000 PO (11:46)
[2019-08-02] MEDS: DEXTROSE 5% WATER 1,000 ML IV SCH ×2 (11:59→12:12)
[2019-08-02] MEDS: LEVETIRACETAM 500MG TABLET PO SCH (11:59)
[2019-08-02] MEDS: ENOXAPARIN 30MG/0.3ML SYR SUBCUT SCH (12:12)
[2019-08-02] MEDS: TRAMADOL 50MG TABLET PO PRN ×2 (14:47→14:57)
[2019-08-02] MEDS: CEFTRIAXONE 1 G PREMIX 50 ML IV SCH (15:29)
[2019-08-02] MEDS: INSULIN GLARGINE UD 100 UNITS/ML SYR SUBCUT SCH (21:18)
[2019-08-03] MEDS: SODIUM CHLORIDE 0.9% INJ 3ML FLUSH IVF SCH ×3 (05:22→20:56)
[2019-08-03] MEDS: BLOOD SUGAR DIAGNOSTIC STRIP TEST SCH ×4 (05:31→20:56)
[2019-08-03] MEDS: DEXTROSE 50% WATER 50ML SYRINGE IV PRN (05:38)
[2019-08-03 05:48] VITALS: BP 165/104
[2019-08-03] MEDS: INSULIN LISPRO 100 UNITS/ML SUBCUT SCH ×4 (07:20→20:56)
[2019-08-03] MEDS: DEXTROSE 5% WATER 1,000 ML IV SCH (08:00)
[2019-08-03] MEDS: ASPIRIN 81MG TABLET PO SCH (08:50)
[2019-08-03] MEDS: LOSARTAN POTASSIUM 50 MG TABLET PO SCH (08:50)
[2019-08-03] MEDS: LEVETIRACETAM 500MG TABLET PO SCH (09:02)
[2019-08-03] MEDS: TRAMADOL 50MG TABLET PO PRN (09:09)
[2019-08-03 09:11] VITALS: BP 159/77
[2019-08-03] MEDS: ENOXAPARIN 30MG/0.3ML SYR SUBCUT SCH (12:54)
[2019-08-03] MEDS: CEFTRIAXONE 1 G PREMIX 50 ML IV SCH (14:44)
[2019-08-03 20:38] VITALS: BP 169/110
[2019-08-03] MEDS: CLONIDINE 0.1MG TABLET PO PRN (20:55)
[2019-08-03] MEDS: HYDROCODONE/ACETAMINOPHEN 10/325MG TABLET PO PRN (20:56)
[2019-08-03 23:52] VITALS: BP 159/88
[2019-08-04] MEDS: DEXTROSE 5% WATER 1,000 ML IV SCH (03:45)
[2019-08-04] MEDS: SODIUM CHLORIDE 0.9% INJ 3ML FLUSH IVF SCH ×3 (06:00→20:51)
[2019-08-04] MEDS: BLOOD SUGAR DIAGNOSTIC STRIP TEST SCH ×4 (06:50→20:50)
[2019-08-04] MEDS: HYDRALAZINE HCL 25MG TABLET PO SCH ×3 (08:04→21:08)
[2019-08-04] MEDS: INSULIN LISPRO 100 UNITS/ML SUBCUT SCH ×4 (08:04→21:07)
[2019-08-04] MEDS: LOSARTAN POTASSIUM 50 MG TABLET PO SCH (08:04)
[2019-08-04] MEDS: LEVETIRACETAM 500MG TABLET PO SCH (08:05)
[2019-08-04] MEDS: ASPIRIN 81MG TABLET PO SCH (08:05)
[2019-08-04] MEDS: HYDROCODONE/ACETAMINOPHEN 10/325MG TABLET PO PRN ×2 (08:48→15:38)
[2019-08-04] MEDS: ENOXAPARIN 30MG/0.3ML SYR SUBCUT SCH (11:57)
[2019-08-04] MEDS: CEFTRIAXONE 1 G PREMIX 50 ML IV SCH (13:57)
[2019-08-04] MEDS: HYDRALAZINE 20MG/ML VIAL IV PRN ×2 (15:37→22:48)
[2019-08-04 16:00] VITALS: BP 154/71
[2019-08-04 18:00] VITALS: BP 172/98
[2019-08-04] MEDS: CLONIDINE 0.1MG TABLET PO PRN (18:38)
[2019-08-04 20:00] VITALS: BP 172/98
[2019-08-04 22:00] VITALS: BP 185/94
[2019-08-05] VITALS (8 sets, daily range): BP systolic 153–189; BP diastolic 77–102
[2019-08-05] MEDS: HYDROCODONE/ACETAMINOPHEN 10/325MG TABLET PO PRN ×3 (00:49→16:31)
[2019-08-05] MEDS: HYDRALAZINE HCL 25MG TABLET PO SCH ×2 (05:52→16:30)
[2019-08-05] MEDS: SODIUM CHLORIDE 0.9% INJ 3ML FLUSH IVF SCH ×2 (06:02→13:47)
[2019-08-05] MEDS: BLOOD SUGAR DIAGNOSTIC STRIP TEST SCH ×3 (06:02→16:39)
[2019-08-05] MEDS: INSULIN LISPRO 100 UNITS/ML SUBCUT SCH ×3 (06:03→17:24)
[2019-08-05] MEDS: LOSARTAN POTASSIUM 50 MG TABLET PO SCH (08:31)
[2019-08-05] MEDS: LEVETIRACETAM 500MG TABLET PO SCH (08:31)
[2019-08-05] MEDS: ASPIRIN 81MG TABLET PO SCH (08:31)
[2019-08-05] MEDS: ENOXAPARIN 30MG/0.3ML SYR SUBCUT SCH (12:38)
[2019-08-05] MEDS: CEFTRIAXONE 1 G PREMIX 50 ML IV SCH (14:00)
[2019-08-06] MEDS ORDERED: LOSARTAN POTASSIUM 25 MG TABLET PO SCH (09:00)
== END 2019-08-05 18:30 | disposition home or self-care (01) | DRG 640 ==
LOC: ER 22:18 → 3WST 08-01 03:21 → EDBEDREQ 08-01 03:31 → EDBEDREQTM 08-01 03:31 → EDBEDREQSVC 08-01 03:31 → ENRESERV 08-01 07:49 → 3WST 08-02 21:54
PROVIDERS: ADMIT Internal Medicine; ATTEND Internal Medicine
PROC: 5A1D70Z Performance of Urinary Filtration, Intermittent, Less than 6 Hours Per Day (ICD-10-PCS; principal; 2019-08-01)
PROC: 05HY33Z Insertion of Infusion Device into Upper Vein, Percutaneous Approach (ICD-10-PCS; 2019-08-01)
PROC: 5A1D70Z Performance of Urinary Filtration, Intermittent, Less than 6 Hours Per Day (ICD-10-PCS; 2019-08-03)
PROC: 5A1D70Z Performance of Urinary Filtration, Intermittent, Less than 6 Hours Per Day (ICD-10-PCS; 2019-08-05)
DX: E87.70 Fluid overload, unspecified (principal); N18.6 End stage renal disease; E43 Unspecified severe protein-calorie malnutrition; I69.354 Hemiplegia and hemiparesis following cerebral infarction affecting left non-dominant side; I31.3 Pericardial effusion (noninflammatory); R18.8 Other ascites; N39.0 Urinary tract infection, site not specified; I13.2 Hypertensive heart and chronic kidney disease with heart failure and with stage 5 chronic kidney disease, or end stage renal disease; E87.6 Hypokalemia; R74.0 Nonspecific elevation of levels of transaminase and lactic acid dehydrogenase [LDH]; E11.22 Type 2 diabetes mellitus with diabetic chronic kidney disease; E11.649 Type 2 diabetes mellitus with hypoglycemia without coma; E11.65 Type 2 diabetes mellitus with hyperglycemia; Z99.2 Dependence on renal dialysis; Z90.49 Acquired absence of other specified parts of digestive tract; Z68.23 Body mass index [BMI] 23.0-23.9, adult; I25.2 Old myocardial infarction; Z79.899 Other long term (current) drug therapy; Z79.2 Long term (current) use of antibiotics; Z79.4 Long term (current) use of insulin
CPT/HCPCS: 36415; 71045; 74176; 76937; 78580; 80048; 80053; 80061; 82010; 82550; 82553; 82962; 83036; 83880; 84439; 84443; 84484; 85025; 85379; 93005; 93306; 93970; 99291; C1725; J0360; J0696; J1650; J1815; J2270; J2405; J3480; J7060; J7070

== ENCOUNTER 2019-11-15 02:13 | Inpatient (IN) | payer MEDICARE, MEDICAID ==
[~2019-11-15] VITALS: Ht 172.7 cm; Wt 65.3 kg
[~2019-11-15 02:13] MED LIST changes: +LEVE1000 PO
[2019-11-15] MEDS ORDERED: NITROGLYCERIN 0.4MG TABLET SL SL PRN ×2 (02:30→06:30)
[2019-11-15] MEDS ORDERED: ASPIRIN 81MG TABLET PO ONE (02:30)
[2019-11-15 03:26] LABS: CHLORIDE 100 mEq/L (98-107)
[2019-11-15] MEDS ORDERED: ACETAMINOPHEN 500MG TABLET PO ONE (03:45)
[2019-11-15] MEDS ORDERED: INSULIN REGULAR (HUMULIN R) 300UNITS/3ML IV SCH (04:00)
[2019-11-15] MEDS ORDERED: SODIUM BICARBONATE 8.4% 1 MEQ/ML 50ML SYR IV SCH (04:00)
[2019-11-15] MEDS ORDERED: ALBUTEROL (0.083%) 2.5MG/3ML NEB HHN SCH (04:00)
[2019-11-15] MEDS ORDERED: SODIUM POLYSTYRENE SULFONATE 15 G/60 ML BOT PO SCH ×2 (04:00→06:30)
[2019-11-15] MEDS ORDERED: DEXTROSE 50% WATER 50ML SYRINGE IV SCH (04:00)
[2019-11-15] MEDS ORDERED: CALCIUM CHLORIDE 1GM/10ML SYR IV SCH (04:00)
[2019-11-15] MEDS ORDERED: SODIUM BICARBONATE 8.4% MEQ/ML 50ML VIAL IV ONE (04:16)
[2019-11-15] MEDS ORDERED: TRAMADOL 50MG TABLET PO PRN (06:30)
[2019-11-15] MEDS ORDERED: IPRATROPIUM/ALBUTEROL 0.5-3(2.5)MG/3ML NEB ORI PRN (06:30)
[2019-11-15] MEDS ORDERED: GUAIFENESIN 200MG/10ML SUGAR FREE UDC PO PRN (06:30)
[2019-11-15] MEDS ORDERED: DOCUSATE SODIUM 100MG CAPSULE PO PRN (06:30)
[2019-11-15] MEDS ORDERED: ACETAMINOPHEN 325MG TABLET PO PRN (06:30)
[2019-11-15] MEDS ORDERED: DEXTROSE 50% WATER 50ML SYRINGE IV PRN (06:30)
[2019-11-15] MEDS ORDERED: ONDANSETRON HCL 4MG/2ML INJ IV PRN (06:30)
[2019-11-15] MEDS ORDERED: MAGNESIUM/ALUMINUM HYDROXIDE/SIMETHICONE 30ML UDC PO PRN (06:30)
[2019-11-15] MEDS: SEVELAMER CARBONATE 800 MG TABLET PO SCH ×3 (07:54→17:50)
[2019-11-15] MEDS: INSULIN LISPRO 100 UNITS/ML SUBCUT SCH ×4 (07:54→20:37)
[2019-11-15] MEDS: BLOOD SUGAR DIAGNOSTIC STRIP TEST SCH ×4 (07:54→20:37)
[2019-11-15] MEDS: ASCORBIC ACID 500 MG TABLET PO SCH ×2 (09:00→20:20)
[2019-11-15] MEDS: AMLODIPINE 10MG TABLET PO SCH (09:00)
[2019-11-15] MEDS: LEVETIRACETAM 500MG TABLET PO SCH ×2 (09:00→20:20)
[2019-11-15] MEDS: ZINC SULFATE 220 MG ( 50 ) CAPSULE PO SCH (09:00)
[2019-11-15] MEDS: FAMOTIDINE 20MG TABLET PO SCH (09:00)
[2019-11-15] MEDS: ASPIRIN 325MG EC TABLET PO SCH (09:00)
[2019-11-15 09:45] VITALS: BP 187/89
[2019-11-15] MEDS ORDERED: INSULIN GLARGINE UD 100 UNITS/ML SYR SUBCUT SCH (10:00)
[2019-11-15 10:05] VITALS: BP 187/89
[2019-11-15] MEDS: CLONIDINE 0.1MG TABLET PO PRN ×2 (11:23→18:04)
[2019-11-15 12:00] VITALS: BP 179/99
[2019-11-15 16:00] VITALS: BP 193/100
[2019-11-15 20:21] VITALS: BP 177/100
[2019-11-15] MEDS ORDERED: ZOLPIDEM TARTRATE 5MG TABLET PO PRN (21:00)
[2019-11-15] MEDS ORDERED: TRAMADOL 50MG TABLET PO SCH (21:15)
[2019-11-15] MEDS: HYDRALAZINE HCL 50MG TABLET PO SCH (21:46)
[2019-11-15] MEDS: NITROGLYCERIN OINT 1GM/INCH UDPKT TD SCH (23:45)
[2019-11-16] VITALS: BP 167/85
[2019-11-16 01:37] LABS: BASOPHILS % 1.1 % (0.0-2.0); EOSINOPHILS % 0.3 % (0.0-5.0); HEMATOCRIT. 33.1 % (36.0-48.0); HEMOGLOBIN. 10.6 g/dL (12.0-16.0); LYMPHOCYTES % 21.7 % (20.0-50.0); MEAN CORPUSCULAR HEMOGLOBIN 27.4 pg (28.0-32.0); MEAN CORPUSCULAR VOLUME 85.5 fL (81.0-99.0); MEAN PLATELET VOLUME 9.1 fl (7.4-10.4); MONOCYTES % 5.3 % (2.0-8.0); NEUTROPHILS % 71.6 % (40.0-76.0); PLATELET 134 x1000/uL (130-400); RED BLOOD CELL COUNT 3.87 mill/uL (4.2-5.4); RED CELL DISTRIBUTION WIDTH 16.6 % (11.6-14.6)
[2019-11-16 01:40] LABS: CHLORIDE 102 mEq/L (98-107)
[2019-11-16 01:49] LABS: CREATINE KINASE 36 IU/L (26-192)
[2019-11-16 01:51] LABS: CREATINE KINASE MB FRACTION 3.4 ng/mL (0.5-3.6)
[2019-11-16] MEDS: HYDRALAZINE HCL 50MG TABLET PO SCH ×3 (06:00→21:54)
[2019-11-16] MEDS: NITROGLYCERIN OINT 1GM/INCH UDPKT TD SCH ×3 (06:00→21:54)
[2019-11-16] MEDS: BLOOD SUGAR DIAGNOSTIC STRIP TEST SCH ×4 (06:08→20:52)
[2019-11-16] MEDS: INSULIN LISPRO 100 UNITS/ML SUBCUT SCH ×4 (07:39→20:52)
[2019-11-16 08:00] VITALS: BP 203/97
[2019-11-16] MEDS: ENOXAPARIN 30MG/0.3ML SYR SUBCUT SCH (08:00)
[2019-11-16] MEDS: LEVETIRACETAM 500MG TABLET PO SCH ×2 (08:21→20:52)
[2019-11-16] MEDS: ASCORBIC ACID 500 MG TABLET PO SCH ×2 (08:24→20:52)
[2019-11-16] MEDS: ASPIRIN 325MG EC TABLET PO SCH (08:24)
[2019-11-16] MEDS: SEVELAMER CARBONATE 800 MG TABLET PO SCH ×3 (08:24→18:27)
[2019-11-16] MEDS: ZINC SULFATE 220 MG ( 50 ) CAPSULE PO SCH (08:24)
[2019-11-16] MEDS: FAMOTIDINE 20MG TABLET PO SCH (08:24)
[2019-11-16] MEDS: AMLODIPINE 10MG TABLET PO SCH (08:27)
[2019-11-16] MEDS: HYDRALAZINE 20MG/ML VIAL IV PRN ×2 (08:39→15:48)
[2019-11-16] MEDS ORDERED: CLONIDINE HCL 0.3MG/24HR PATCH TD SCH (10:00)
[2019-11-16] MEDS: INSULIN GLARGINE UD 100 UNITS/ML SYR SUBCUT SCH (11:00)
[2019-11-16 12:00] VITALS: BP 235/126
[2019-11-16] MEDS: CLONIDINE 0.1MG TABLET PO PRN (12:59)
[2019-11-16 16:00] VITALS: BP 182/86
[2019-11-16 20:00] VITALS: BP 156/86
[2019-11-17 04:00] VITALS: BP 179/95
[2019-11-17] MEDS: HYDRALAZINE HCL 50MG TABLET PO SCH ×2 (06:07→14:00)
[2019-11-17] MEDS: NITROGLYCERIN OINT 1GM/INCH UDPKT TD SCH ×2 (06:07→14:00)
[2019-11-17] MEDS: BLOOD SUGAR DIAGNOSTIC STRIP TEST SCH ×4 (06:07→20:44)
[2019-11-17] MEDS: INSULIN LISPRO 100 UNITS/ML SUBCUT SCH ×4 (07:35→20:44)
[2019-11-17] MEDS: SEVELAMER CARBONATE 800 MG TABLET PO SCH ×3 (07:50→17:50)
[2019-11-17 08:00] VITALS: BP 173/98
[2019-11-17] MEDS: ENOXAPARIN 30MG/0.3ML SYR SUBCUT SCH (08:00)
[2019-11-17] MEDS: ASCORBIC ACID 500 MG TABLET PO SCH ×2 (08:56→20:43)
[2019-11-17] MEDS: ZINC SULFATE 220 MG ( 50 ) CAPSULE PO SCH (08:56)
[2019-11-17] MEDS: FAMOTIDINE 20MG TABLET PO SCH (08:56)
[2019-11-17] MEDS: ASPIRIN 325MG EC TABLET PO SCH (08:56)
[2019-11-17] MEDS: LEVETIRACETAM 500MG TABLET PO SCH ×2 (08:56→20:43)
[2019-11-17] MEDS: AMLODIPINE 10MG TABLET PO SCH (08:58)
[2019-11-17] MEDS: CLONIDINE 0.1MG TABLET PO PRN (09:04)
[2019-11-17] MEDS: INSULIN GLARGINE UD 100 UNITS/ML SYR SUBCUT SCH (10:00)
[2019-11-17 13:51] VITALS: BP 134/69
[2019-11-17 16:00] VITALS: BP 139/77
[2019-11-17] MEDS: ACETAMINOPHEN 325MG TABLET PO PRN (19:48)
[2019-11-17] MEDS: HYDROCODONE/ACETAMINOPHEN 5/325MG TABLET PO PRN (23:20)
[2019-11-18] VITALS: BP 150/90
[2019-11-18] MEDS: HYDRALAZINE HCL 50MG TABLET PO SCH ×4 (00:23→22:59)
[2019-11-18] MEDS: NITROGLYCERIN OINT 1GM/INCH UDPKT TD SCH ×5 (00:24→22:58)
[2019-11-18 04:00] VITALS: BP 181/86
[2019-11-18] MEDS: HYDROCODONE/ACETAMINOPHEN 5/325MG TABLET PO PRN (05:35)
[2019-11-18] MEDS: BLOOD SUGAR DIAGNOSTIC STRIP TEST SCH ×4 (07:20→21:00)
[2019-11-18] MEDS: INSULIN LISPRO 100 UNITS/ML SUBCUT SCH ×4 (07:50→21:00)
[2019-11-18 08:00] VITALS: BP 166/84
[2019-11-18] MEDS: ENOXAPARIN 30MG/0.3ML SYR SUBCUT SCH (08:00)
[2019-11-18] MEDS: SEVELAMER CARBONATE 800 MG TABLET PO SCH ×3 (08:38→17:19)
[2019-11-18] MEDS: ZINC SULFATE 220 MG ( 50 ) CAPSULE PO SCH (08:38)
[2019-11-18] MEDS: FAMOTIDINE 20MG TABLET PO SCH (08:38)
[2019-11-18] MEDS: ASCORBIC ACID 500 MG TABLET PO SCH ×2 (08:38→21:47)
[2019-11-18] MEDS: ASPIRIN 325MG EC TABLET PO SCH (08:38)
[2019-11-18] MEDS: LEVETIRACETAM 500MG TABLET PO SCH ×2 (08:39→21:47)
[2019-11-18] MEDS: AMLODIPINE 10MG TABLET PO SCH (08:39)
[2019-11-18] MEDS: INSULIN GLARGINE UD 100 UNITS/ML SYR SUBCUT SCH (10:00)
[2019-11-18 16:00] VITALS: BP 167/82
[2019-11-18 20:00] VITALS: BP 168/79
[2019-11-18] MEDS: ACETAMINOPHEN 325MG TABLET PO PRN (22:59)
[2019-11-19] VITALS: BP 176/92
[2019-11-19] MEDS: CLONIDINE 0.1MG TABLET PO PRN (00:59)
[2019-11-19] MEDS: NITROGLYCERIN OINT 1GM/INCH UDPKT TD SCH ×3 (05:46→20:39)
[2019-11-19] MEDS: HYDRALAZINE HCL 50MG TABLET PO SCH ×3 (05:46→20:39)
[2019-11-19] MEDS: BLOOD SUGAR DIAGNOSTIC STRIP TEST SCH ×4 (07:20→21:00)
[2019-11-19] MEDS: INSULIN LISPRO 100 UNITS/ML SUBCUT SCH ×4 (07:50→21:00)
[2019-11-19 08:00] VITALS: BP 174/84
[2019-11-19] MEDS: ENOXAPARIN 30MG/0.3ML SYR SUBCUT SCH (08:00)
[2019-11-19] MEDS: ASPIRIN 325MG EC TABLET PO SCH (09:00)
[2019-11-19] MEDS: AMLODIPINE 10MG TABLET PO SCH (09:00)
[2019-11-19] MEDS: FAMOTIDINE 20MG TABLET PO SCH (09:55)
[2019-11-19] MEDS: SEVELAMER CARBONATE 800 MG TABLET PO SCH ×3 (09:55→17:50)
[2019-11-19] MEDS: LEVETIRACETAM 500MG TABLET PO SCH ×2 (09:55→20:43)
[2019-11-19] MEDS: ASCORBIC ACID 500 MG TABLET PO SCH ×2 (09:55→20:42)
[2019-11-19] MEDS: ZINC SULFATE 220 MG ( 50 ) CAPSULE PO SCH (09:56)
[2019-11-19] MEDS: INSULIN GLARGINE UD 100 UNITS/ML SYR SUBCUT SCH (10:00)
[2019-11-19 18:35] VITALS: BP 125/74
== END 2019-11-19 21:00 | disposition home or self-care (01) | DRG 291 ==
LOC: ER 02:30 → 6WST 04:05 → SUPCPDRO 06:19 → ENRESERV 07:23
PROVIDERS: ADMIT Internal Medicine; ATTEND Internal Medicine
PROC: 5A1D70Z Performance of Urinary Filtration, Intermittent, Less than 6 Hours Per Day (ICD-10-PCS; principal; 2019-11-15)
PROC: 5A1D70Z Performance of Urinary Filtration, Intermittent, Less than 6 Hours Per Day (ICD-10-PCS; 2019-11-17)
PROC: 5A1D70Z Performance of Urinary Filtration, Intermittent, Less than 6 Hours Per Day (ICD-10-PCS; 2019-11-18)
DX: I13.2 Hypertensive heart and chronic kidney disease with heart failure and with stage 5 chronic kidney disease, or end stage renal disease (principal); I50.33 Acute on chronic diastolic (congestive) heart failure; E43 Unspecified severe protein-calorie malnutrition; N18.6 End stage renal disease; E87.1 Hypo-osmolality and hyponatremia; M94.0 Chondrocostal junction syndrome [Tietze]; E11.22 Type 2 diabetes mellitus with diabetic chronic kidney disease; E11.65 Type 2 diabetes mellitus with hyperglycemia; E83.51 Hypocalcemia; E87.5 Hyperkalemia; I69.30 Unspecified sequelae of cerebral infarction; Z79.4 Long term (current) use of insulin; Z91.14 Patient's other noncompliance with medication regimen; Z99.2 Dependence on renal dialysis; Z68.21 Body mass index [BMI] 21.0-21.9, adult; Z76.5 Malingerer [conscious simulation]; Z79.899 Other long term (current) drug therapy
CPT/HCPCS: 36415; 71045; 80048; 80053; 80061; 82550; 82553; 82962; 83036; 83880; 84484; 85025; 94644; 99291; J0360; J1650; J1815; J3490